=== PATIENT | male | born 1965 | race Caucasian/White ===

== ENCOUNTER 2017-09-02 02:32 | Emergency (ER) | payer OTHER ==
[~2017-09-02] VITALS: Ht 172.7 cm; Wt 68.0 kg
[~2017-09-02 02:32] MED LIST: GNP100TA3 PO; LORA-392 PO; MULT1TAB46 PO; OMEP20TA39 PO; VENTAER INH; ZITH250T PO; ZOFR4TAB3 PO
[2017-09-02 02:41] VITALS: BP 143/73; PULSE 101; RESP 15; TEMP 98.1; O2SAT 96
[2017-09-02] MEDS ORDERED: SODIUM CHLORIDE 0.9% FLUSH 10 ML FLUSH IVF PRN (03:00)
[2017-09-02 03:13] VITALS: RESP 20; O2SAT 96
[2017-09-02] MEDS ORDERED: ASPIRIN 81 MG CHEW TAB CHEW SCH ×2 (03:16→09:00)
[2017-09-02 03:19] LABS: AUTOMATED NEUTROPHIL # 5.5 TH/MM3 (1.8-7.7); BASOPHIL # 0.1 TH/MM3 (0-0.2); BASOPHIL % 0.7 % (0.0-2.0); EOSINOPHIL # 0.4 TH/MM3 (0-0.4); HEMATOCRIT 38.7 % (39.0-51.0); HEMO FLAGS DIFF FINAL; LYMPH % 31.6 % (9.0-44.0); LYMPHOCYTE # 3.3 TH/MM3 (1.0-4.8); MEAN CELL VOLUME 96.5 FL (80.0-100.0); MEAN CORPUSCULAR HEMOGLOBIN 32.9 PG (27.0-34.0); MEAN CORPUSCULAR HGB CONC 34.1 % (32.0-36.0); NEUT % 52.7 % (16.0-70.0); PLATELET COUNT 248 TH/MM3 (150-450); RED BLOOD COUNT 4.01 MIL/MM3 (4.50-5.90); RED CELL DISTRIBUTION WIDTH 13.2 % (11.6-17.2); WHITE BLOOD COUNT 10.4 TH/MM3 (4.0-11.0)
--- NOTE | 2017-09-02 03:23 | RADRPT ---
EXAM DATE/TIME: 09/02/2017 03:55 [facility] COMPARISON: CHEST SINGLE AP, August 27, 2017, 21:55. INDICATIONS : Short of breath. MEDICAL HISTORY : None. SURGICAL HISTORY : None. ENCOUNTER: Initial ACUITY: 1 day PAIN SCORE: 0/10 LOCATION: Bilateral chest FINDINGS: A single view of the chest demonstrates the lungs to be symmetrically aerated without evidence of mas s, infiltrate or effusion. The cardiomediastinal contours are unremarkable. Osseous structures are intact. CONCLUSION: No acute disease. Freedom Salazar MD on September 02, 2017 at 3:21 Board Certified Radiologist. This report was verified electronically.
[2017-09-02 03:31] LABS: ANION GAP 11 MEQ/L (5-15); BICARBONATE 20.6 MEQ/L (21.0-32.0); BLOOD UREA NITROGEN 15 MG/DL (7-18); CHLORIDE 114 MEQ/L (98-107); GLOMERULAR FILTRATION RATE 113 ML/MIN (>89); POTASSIUM 3.3 MEQ/L (3.5-5.1); SODIUM (NA) 146 MEQ/L (136-145)
[2017-09-02 03:34] LABS: CREATINE KINASE 167 U/L (39-308)
[2017-09-02 03:38] LABS: ALCOHOL 315 MG/DL (0-5)
[2017-09-02 03:39] LABS: APTT (PATIENT) 22.9 SEC (24.3-30.1); INTERNATIONAL NORMALIZED RATIO 0.9 RATIO; PROTHROMBIN TIME - PATIENT 9.7 SEC (9.8-11.6)
[2017-09-02 03:51] LABS: CKMB 1.7 NG/ML (0.5-3.6)
--- NOTE | 2017-09-02 03:52 | PD ---
HPI Chief Complaint: Chest Pain Time Seen by Provider: 02:53 Travel History International Travel<30 days: No Contact w/Intl Traveler<30days: No Traveled to known affect area: No History of Present Illness HPI 51-year-old white male presents to emergency department by EMS for evaluation of chest pain. The patient has a history of alcohol abuse, pancreatitis, anxiety, and asthma/COPD. The patient states that he was put up in a hotel room this evening. 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 He had an appointment earlier today and he intends on going back to the sober living facility. While watching TV this evening he developed chest pain and shortness of breath. He missed to consuming alcohol. He states that he felt very anxious. He felt as if he may . Intends the pain was sharp and central. Moderate in intensity. No associated nausea vomiting. No diaphoresis. No radiation of pain. He did feel his heart was beating fast. He felt as if he could not catch his breath. He states that this is similar to when he has had anxiety and asthma. Patient states that he has had multiple admissions for chest pain in the past as well as alcohol abuse. He had a stress test 2 years ago which she reports was negative. He was seen in the ER and admitted approximately 2 weeks ago for chest pain. PFSH Past Medical History Asthma: No Autoimmune Disease: Yes (POSSIBLE LUPUS) Anxiety: Yes Depression: Yes Heart Rhythm Problems: No Cancer: No Cardiovascular Problems: Yes High Cholesterol: No Chest Pain: No Congestive Heart Failure: No COPD: Yes Endocrine: No Gastrointestinal Disorders: Yes GERD: No Genitourinary: Yes Hiatal Hernia: No Hypertension: Yes Immune Disorder: Yes (POSS LUPUS) Implanted Vascular Access Dvce: No Kidney Stones: No Musculoskeletal: No Neurologic: Yes Psychiatric: Yes Reproductive: Yes Respiratory: Yes (COPD) Immunizations Current: No Pancreatitis: Yes Renal Failure: No Sleep Apnea: No Ulcer: No Past Surgical History Abdominal Surgery: Yes (APPENDECTOMY) Appendectomy: Yes Cardiac Surgery: No Ear Surgery: No Endocrine Surgery: No Eye Surgery: No Genitourinary Surgery: No Gynecologic Surgery: No Oral Surgery: No Thoracic Surgery: No Other Surgery: Yes Social History Alcohol Use: Yes (BINGE 1 PINT OF RUM) Tobacco Use: Yes (1 PPD) Substance Use: No Allergies-Medications (Allergen,Severity, Reaction): Coded Allergies: pecan nut (Unverified Allergy, Severe, 09/02/17) walnut (Unverified Allergy, Severe, 09/02/17) Reported Meds & Prescriptions Reported Meds & Active Scripts Active Ventolin Hfa 18 GM Inh (Albuterol Sulfate) 90 Mcg/Act Aer 2 Puff INH Q6H PRN Zithromax (Azithromycin) 250 Mg Tab 250 Mg PO DAILY 3 Days Ativan (Lorazepam) 0.5 Mg Tab 0.5 Mg PO Q6H PRN Multi Vitamin Daily (Multiple Vitamin) 1 Tab Tab 1 Tab PO DAILY 30 Days Gnp Vitamin B-1 (Thiamine HCl) 100 Mg Tab 100 Mg PO DAILY 30 Days Review of Systems ROS Limitations: Intoxication General / Constitutional: No: Fever Eyes: No: Visual changes HENT: No: Headaches, Neck Pain Cardiovascular: Positive: Chest Pain or Discomfort, Tachycardia Respiratory: Positive: Shortness of Breath, Wheezing Gastrointestinal: No: Nausea, Vomiting, Abdominal Pain Genitourinary: No: Dysuria Musculoskeletal: No: Pain Skin: No Rash Neurologic: No: Weakness Psychiatric: Positive: Substance Abuse, No: Depression Endocrine: No: Polydipsia Hematologic/Lymphatic: No: Easy Bruising Physical Exam Narrative GENERAL: Well-developed, well-nourished in no apparent distress. Nontoxic appearing. Smells of EtOH and appears intoxicated HEAD: Normocephalic, atraumatic. EYES: Pupils equal round and reactive. Extraocular motions intact. No scleral icterus. No injection or drainage. ENT: Nose clear. Throat without erythema, tonsillar hypertrophy or exudate. Uvula midline. Airway patent. NECK: Trachea midline. Supple, nontender, moves head freely. No central bony tenderness or spasm. CARDIOVASCULAR: Regular rate and rhythm without murmurs, gallops, or rubs. RESPIRATORY: Clear to auscultation. Breath sounds equal bilaterally. No wheezes , rales, or rhonchi. GASTROINTESTINAL: Abdomen soft, non-tender, nondistended. No hepato-splenomegaly , or palpable masses. No guarding. EXTREMITIES: No clubbing, cyanosis, or edema. No joint tenderness. BACK: Nontender without deformity. No flank tenderness. NEUROLOGICAL: Awake, alert and oriented x 3 .Cranial nerves grossly intact. Motor and sensory grossly within normal limits. Slurred speech. Data Data Last Documented VS Vital Signs Date Time Temp Pulse Resp B/P (MAP) Pulse Ox O2 Delivery O2 Flow Rate FiO2 09/02/17 03:13 20 96 Room Air 09/02/17 02:48 100 09/02/17 02:41 98.1 143/73 (96) Orders Orders Electrocardiogram (09/02/17 02:51) Basic Metabolic Panel (Bmp) (09/02/17 02:51) Ckmb (Isoenzyme) Profile (09/02/17 02:51) Complete Blood Count With Diff (09/02/17 02:51) Magnesium (Mg) (09/02/17 02:51) Prothrombin Time / Inr (Pt) (09/02/17 02:51) Act Partial Throm Time (Ptt) (09/02/17 02:51) Troponin I (09/02/17 02:51) Lipase (09/02/17 02:51) Chest, Single Ap (09/02/17 02:51) Ecg Monitoring (09/02/17 02:51) Bilateral Bp Monitoring (09/02/17 02:51) Iv Access Insert/Monitor (09/02/17 02:51) Oximetry (09/02/17 02:51) Oxygen Administration (09/02/17 02:51) Sodium Chloride 0.9% Flush (Ns Flush) (09/02/17 03:00) Drug Screen, Random Urine (09/02/17 02:51) Alcohol (Ethanol) (09/02/17 02:51) Aspirin Chew (Aspirin Chew) (09/02/17 09:00) Aspirin Chew (Aspirin Chew) (09/02/17 03:16) CKMB (09/02/17 03:10) CKMB% (09/02/17 03:10) Lorazepam Inj (Ativan Inj) (09/02/17 04:00) Labs Laboratory Tests Test 09/02/17 03:10 09/02/17 03:50 White Blood Count 10.4 TH/MM3 Red Blood Count 4.01 MIL/MM3 Hemoglobin 13.2 GM/DL Hematocrit 38.7 % Mean Corpuscular Volume 96.5 FL Mean Corpuscular Hemoglobin 32.9 PG Mean Corpuscular Hemoglobin Concent 34.1 % Red Cell Distribution Width 13.2 % Platelet Count 248 TH/MM3 Mean Platelet Volume 8.8 FL Neutrophils (%) (Auto) 52.7 % Lymphocytes (%) (Auto) 31.6 % Monocytes (%) (Auto) 11.0 % Eosinophils (%) (Auto) 4.0 % Basophils (%) (Auto) 0.7 % Neutrophils # (Auto) 5.5 TH/MM3 Lymphocytes # (Auto) 3.3 TH/MM3 Monocytes # (Auto) 1.1 TH/MM3 Eosinophils # (Auto) 0.4 TH/MM3 Basophils # (Auto) 0.1 TH/MM3 CBC Comment DIFF FINAL Differential Comment Prothrombin Time 9.7 SEC Prothromb Time International Ratio 0.9 RATIO Activated Partial Thromboplast Time 22.9 SEC Blood Urea Nitrogen 15 MG/DL Creatinine 0.73 MG/DL Random Glucose 127 MG/DL Calcium Level 8.2 MG/DL Magnesium Level 2.0 MG/DL Sodium Level 146 MEQ/L Potassium Level 3.3 MEQ/L Chloride Level 114 MEQ/L Carbon Dioxide Level 20.6 MEQ/L Anion Gap 11 MEQ/L Estimat Glomerular Filtration Rate 113 ML/MIN Total Creatine Kinase 167 U/L Creatine Kinase MB 1.7 NG/ML Troponin I LESS THAN 0.02 NG/ML Lipase 353 U/L Ethyl Alcohol Level 315 MG/DL Urine Opiates Screen NEG Urine Barbiturates Screen NEG Urine Amphetamines Screen NEG Urine Benzodiazepines Screen POS Urine Cocaine Screen NEG Urine Cannabinoids Screen NEG MDM Medical Decision Making Medical Screen Exam Complete: Yes Emergency Medical Condition: Yes Medical Record Reviewed: Yes Interpretation(s) Last 24 hours Impressions Chest X-Ray 09/02/17 0251 Signed Impressions: Service Date/Time: Saturday, September 02, 2017 03:55 - CONCLUSION: No acute disease. Freedom Salazar MD Laboratory Tests Test 09/02/17 03:10 09/02/17 03:50 White Blood Count 10.4 TH/MM3 Red Blood Count 4.01 MIL/MM3 Hemoglobin 13.2 GM/DL Hematocrit 38.7 % Mean Corpuscular Volume 96.5 FL Mean Corpuscular Hemoglobin 32.9 PG Mean Corpuscular Hemoglobin Concent 34.1 % Red Cell Distribution Width 13.2 % Platelet Count 248 TH/MM3 Mean Platelet Volume 8.8 FL Neutrophils (%) (Auto) 52.7 % Lymphocytes (%) (Auto) 31.6 % Monocytes (%) (Auto) 11.0 % Eosinophils (%) (Auto) 4.0 % Basophils (%) (Auto) 0.7 % Neutrophils # (Auto) 5.5 TH/MM3 Lymphocytes # (Auto) 3.3 TH/MM3 Monocytes # (Auto) 1.1 TH/MM3 Eosinophils # (Auto) 0.4 TH/MM3 Basophils # (Auto) 0.1 TH/MM3 CBC Comment DIFF FINAL Differential Comment Prothrombin Time 9.7 SEC Prothromb Time International Ratio 0.9 RATIO Activated Partial Thromboplast Time 22.9 SEC Blood Urea Nitrogen 15 MG/DL Creatinine 0.73 MG/DL Random Glucose 127 MG/DL Calcium Level 8.2 MG/DL Magnesium Level 2.0 MG/DL Sodium Level 146 MEQ/L Potassium Level 3.3 MEQ/L Chloride Level 114 MEQ/L Carbon Dioxide Level 20.6 MEQ/L Anion Gap 11 MEQ/L Estimat Glomerular Filtration Rate 113 ML/MIN Total Creatine Kinase 167 U/L Creatine Kinase MB 1.7 NG/ML Troponin I LESS THAN 0.02 NG/ML Lipase 353 U/L Ethyl Alcohol Level 315 MG/DL Urine Opiates Screen NEG Urine Barbiturates Screen NEG Urine Amphetamines Screen NEG Urine Benzodiazepines Screen POS Urine Cocaine Screen NEG Urine Cannabinoids Screen NEG EKG: Normal sinus rhythm with a ventricular rate of 93. Normal ME, normal QT, normal axis. No abnormal ST-T wave changes Differential Diagnosis Differential diagnoses: Acute coronary syndrome, AR, COPD, asthma, anxiety, pancreatitis, alcohol intoxication Narrative Course IV access is obtained. Patient's given 2 baby aspirin by mouth. He is placed on cardiac and self-monitoring. EKG is normal. No acute ST-T wave changes. Patient smells of EtOH and appears intoxicated. He appears somewhat anxious. The patient has requested Ativan. He is given 0.5 mg IV. Patient's laboratory testing reveals a negative troponin along with a blood alcohol of 315. Review of the medical record indicates prior recent visits with negative troponin and EKG. I find that this patient is a low risk and does not require inpatient admission and repeat serial blood testing. The patient has no persistent chest pain. He is resting comfortable. I agreed that his symptoms are most likely related to his alcohol and anxiety. The patient is been medically cleared and can be discharged when sober or if an individual can come pick him up and take responsibility of this evening. This is alcohol intoxication, noncardiac chest pain, anxiety Diagnosis Primary Impression: Alcohol intoxication Qualified Codes: F10.920 - Alcohol use, unspecified with intoxication, uncomplicated Additional Impressions: Non-cardiac chest pain Anxiety Patient Instructions: General Instructions Additional Instructions: Rest. Increase fluids. Avoid alcohol. Avoid illegal substances. Follow-up with [facility] for detox. Do not operate a car or any heavy machinery under the influence of alcohol or drugs. Follow-up with a medical doctor this week. Return to the ER for emergencies Med/Other Pt SpecificInfo: No Meds Exist/No RX given Disposition: 01 DISCHARGE HOME Condition: Stable Delmer Lord Sep 02, 2017 03:52
[2017-09-02] MEDS ORDERED: LORazepam 2 MG/ML VIAL IV PUSH ONE (04:00)
--- NOTE | 2017-09-02 14:53 | EKG ---
Date Performed: 09/02/2017 Time Performed: 03:01:51 PTAGE: 51 years EKG: Sinus rhythm NORMAL ECG Compared to prior tracing no significant change PREVIOUS TRACING : 08/27/2017 21.00 DOCTOR: Shin Huffman Interpretating Date/Time 09/02/2017 14:52:30
== END 2017-09-02 09:40 | disposition home or self-care (01) ==
LOC: NEPD 02:32
DX: F10.129 Alcohol abuse with intoxication, unspecified (principal); R07.89 Other chest pain; F41.9 Anxiety disorder, unspecified; F32.9 Major depressive disorder, single episode, unspecified; J44.9 Chronic obstructive pulmonary disease, unspecified; I10 Essential (primary) hypertension; K85.90 Acute pancreatitis without necrosis or infection, unspecified; F17.200 Nicotine dependence, unspecified, uncomplicated
CPT/HCPCS: 71010; 80048; 80307; 82550; 82552; 83690; 83735; 84484; 85025; 85610; 85730; 93005; 96374; 99285; J2060